=== PATIENT | female | born 1955 | race Caucasian/White ===

== ENCOUNTER 2017-01-16 11:12 | Emergency (ER) | payer BC | END 2017-01-16 13:23 | disposition home or self-care (01) | LOC: ER1 11:12 | DX: S09.90XA Unspecified injury of head, initial encounter (principal); I10 Essential (primary) hypertension; Z98.51 Tubal ligation status; Z88.8 Allergy status to other drugs, medicaments and biological substances; Y04.2XXA Assault by strike against or bumped into by another person, initial encounter | CPT/HCPCS: 70450; 93005; 99284 ==

== ENCOUNTER 2021-12-27 15:30 | Inpatient (IN) | payer BC, MEDICARE ==
[~2021-12-27] VITALS: Ht 154.9 cm; Wt 98.4 kg
[2021-12-27 16:32] LABS: HEMOGLOBIN 17.1 gm/dl (12.3-15.3); RED BLOOD COUNT 5.45 M/UL (4.00-5.10); WHITE BLOOD COUNT 21.8 K/UL (4.5-11.0)
[2021-12-27 16:51] LABS: BUN/CREATININE RATIO 21 (0-10)
[2021-12-27] MEDS ORDERED: COZAAR 50MG TAB50 MG PO (21:46)
[2021-12-27] MEDS ORDERED: CRESTOR 10 MG T10 MG PO (21:53)
[2021-12-27] MEDS ORDERED: PROZAC10 MG PO (21:54)
[2021-12-28 02:38] LABS: WHITE BLOOD COUNT 22.1 K/UL (4.5-11.0)
[2021-12-28 02:42] LABS: HEMOGLOBIN 13.6 gm/dl (12.3-15.3); RED BLOOD COUNT 4.38 M/UL (4.00-5.10)
[2021-12-28 03:03] LABS: BUN/CREATININE RATIO 18 (0-10)
[2021-12-29] MEDS ORDERED: ZOFRAN 4 MG TAB4 MG PO (11:48)
[2021-12-29] MEDS ORDERED: CIPRO500 MG PO (11:48)
[2021-12-29] MEDS ORDERED: METRONIDAZOLE500 MG PO (11:48)
[2021-12-29 13:11] LABS: HEMOGLOBIN 14.2 gm/dl (12.3-15.3); RED BLOOD COUNT 4.51 M/UL (4.00-5.10); WHITE BLOOD COUNT 17.6 K/UL (4.5-11.0)
[2021-12-29 13:35] LABS: BUN/CREATININE RATIO 14 (0-10)
[2021-12-30 06:50] LABS: HEMOGLOBIN 12.6 gm/dl (12.3-15.3); RED BLOOD COUNT 4.11 M/UL (4.00-5.10)
[2021-12-30 07:08] LABS: BUN/CREATININE RATIO 15 (0-10)
[2021-12-30 07:09] LABS: WHITE BLOOD COUNT 12.5 K/UL (4.5-11.0)
[2021-12-31 05:54] LABS: HEMOGLOBIN 12.7 gm/dl (12.3-15.3); RED BLOOD COUNT 4.13 M/UL (4.00-5.10); WHITE BLOOD COUNT 10.2 K/UL (4.5-11.0)
[2021-12-31 06:20] LABS: BUN/CREATININE RATIO 16 (0-10)
== END 2021-12-31 16:04 | disposition home or self-care (01) | DRG 872 ==
LOC: ER1 15:30 → MED SURG 4 18:33 → CDU 18:33 → PROG CARE 20:20 → MED SURG 4 12-29 05:22
PROVIDERS: Family Medicine; Physician Assistant; ADMIT Internal Medicine
DX: A41.9 Sepsis, unspecified organism (principal); K57.20 Diverticulitis of large intestine with perforation and abscess without bleeding; E87.2 Acidosis; Z68.41 Body mass index [BMI] 40.0-44.9, adult; Z20.822 Contact with and (suspected) exposure to COVID-19; R65.20 Severe sepsis without septic shock; E78.5 Hyperlipidemia, unspecified; E87.6 Hypokalemia; I10 Essential (primary) hypertension; J45.909 Unspecified asthma, uncomplicated; E86.0 Dehydration; E66.01 Morbid (severe) obesity due to excess calories; Z90.49 Acquired absence of other specified parts of digestive tract; Z98.51 Tubal ligation status; Z88.8 Allergy status to other drugs, medicaments and biological substances; Z82.3 Family history of stroke; Z80.7 Family history of other malignant neoplasms of lymphoid, hematopoietic and related tissues; Z91.048 Other nonmedicinal substance allergy status
CPT/HCPCS: 0240U; 36415; 80048; 80053; 81001; 83036; 83605; 83690; 83735; 85025; 85027; 87040; 93005; 96374; 96375; 99285; J1335; J2270; J2405; J2543; J7030; Q9967

== ENCOUNTER → 2022-01-14 | Outpatient (CLI) | payer BC, MEDICARE ==
[~2022-01-14] MED LIST: CIPRO500 MG PO; COZAAR 50MG TAB50 MG PO; CRESTOR 10 MG T10 MG PO; METRONIDAZOLE500 MG PO; PROZAC10 MG PO; ZOFRAN 4 MG TAB4 MG PO
[2022-01-14 08:18] LABS: RED BLOOD COUNT 4.92 M/UL (4.00-5.10); WHITE BLOOD COUNT 8.6 K/UL (4.5-11.0)
[2022-01-14 08:45] LABS: BUN/CREATININE RATIO 11 (0-10)
[2022-01-15 07:12] LABS: VITAMIN D, 25-HYDROXY 35.3 ng/mL (30.0-100.0)
[2022-01-15 08:16] LABS: THYROXINE (T4) 10.2 ug/dL (4.5-12.0)
== END ==
LOC: LAB 07:17
PROVIDERS: Nurse Practitioner
DX: A41.4 Sepsis due to anaerobes (principal); E78.5 Hyperlipidemia, unspecified; I10 Essential (primary) hypertension; R53.83 Other fatigue; E55.9 Vitamin D deficiency, unspecified
CPT/HCPCS: 36415; 80053; 80061; 81001; 84436; 84443; 84480; 85025; 85652; 86140

== ENCOUNTER → 2022-01-23 | Outpatient (CLI) | payer BC, MEDICARE | LOC: CT 14:44 | DX: K57.20 Diverticulitis of large intestine with perforation and abscess without bleeding (principal) | CPT/HCPCS: Q9967 ==

== ENCOUNTER → 2022-01-30 | Outpatient (CLI) | payer BC, MEDICARE ==
[2022-01-30 06:50] LABS: HEMOGLOBIN 14.7 gm/dl (12.3-15.3); RED BLOOD COUNT 4.87 M/UL (4.00-5.10); WHITE BLOOD COUNT 6.9 K/UL (4.5-11.0)
== END ==
LOC: LAB 06:21
PROVIDERS: Nurse Practitioner
DX: K57.93 Diverticulitis of intestine, part unspecified, without perforation or abscess with bleeding (principal)
CPT/HCPCS: 36415; 85025; 85652; 86140

== ENCOUNTER → 2022-03-19 | Outpatient (CLI) | payer BC, MEDICARE ==
[2022-03-19 10:25] LABS: HEMOGLOBIN 15.7 gm/dl (12.3-15.3); RED BLOOD COUNT 5.12 M/UL (4.00-5.10); WHITE BLOOD COUNT 7.4 K/UL (4.5-11.0)
[2022-03-19 14:51] LABS: BUN/CREATININE RATIO 28 (0-10)
== END ==
LOC: LAB 10:01
PROVIDERS: Family Medicine
DX: E78.5 Hyperlipidemia, unspecified (principal); E55.9 Vitamin D deficiency, unspecified
CPT/HCPCS: 36415; 80053; 80061; 83735; 85027